=== PATIENT | female | born 1965 | race Caucasian/White ===

== ENCOUNTER 2024-02-05 10:24 | Outpatient (CLI) | payer MEDICAID | END 2024-02-05 23:59 | disposition home or self-care (01) | LOC: 64 CT 10:24 | PROVIDERS: ATTEND Family Medicine | DX: Z12.2 Encounter for screening for malignant neoplasm of respiratory organs (principal); R59.9 Enlarged lymph nodes, unspecified; J84.10 Pulmonary fibrosis, unspecified; M47.814 Spondylosis without myelopathy or radiculopathy, thoracic region; Z87.891 Personal history of nicotine dependence | CPT/HCPCS: 71271 ==

== ENCOUNTER → 2024-03-28 | Outpatient (CLI) | payer MEDICAID | END | disposition home or self-care (01) | LOC: CARD DIAG 07:42 | PROVIDERS: ATTEND Family Medicine | DX: I08.8 Other rheumatic multiple valve diseases (principal); R60.0 Localized edema; Z86.79 Personal history of other diseases of the circulatory system | CPT/HCPCS: 93306 ==